=== PATIENT | male | born 1975 | race Two or more races ===

== ENCOUNTER 2024-09-09 00:29 | Inpatient (IN) | payer OTHER ==
[2024-09-09 01:51] LABS: ABSOLUTE IMMATURE GRANULOCYTES 0.06 x10^3/uL (0.0-0.031); BASOPHILS # 0.16 x10^3/uL (0.01-0.08); EOSINOPHIL % 1.3 % (0.8-7.0); EOSINOPHILS # 0.17 x10^3/uL (0.04-0.54); HEMATOCRIT 47.6 % (40.1-51.0); HEMOGLOBIN 16.4 g/dL (13.7-17.5); MCHC 34.5 g/dl (32.3-36.5); MEAN CELL VOLUME 89.6 fl (79.0-92.2); MEAN PLT VOLUME 9.9 fl (9.4-12.4); MONOCYTE % 9.1 % (5.3-12.2); PLATELET COUNT 388 x10^3/uL (163-337); RDW 13.3 % (12.1-15.9)
[2024-09-09] MEDS ORDERED: MAG HYDROX/AL HYDROX/SIMETH 30 ML UNIT-DOSE CUP ONE (01:51)
[2024-09-09] MEDS ORDERED: ONDANSETRON 4 MG/2 ML VIAL ONE ×3 (01:52→09:50)
[2024-09-09] MEDS ORDERED: FAMOTIDINE 10 MG/ML VIAL IVPB ONE (01:52)
[2024-09-09 01:54] LABS: VENOUS BASE EXCESS 3.6 mmol/L (-2-2); VENOUS O2 SATURATION 92.9 % (70-80); VENOUS PCO2 40.8 mmHg (38-52); VENOUS PH 7.452 (7.310-7.410)
[2024-09-09 02:04] LABS: INR 1.16 (0.83-1.09); PROTHROMBIN TIME (PATIENT) 12.8 SEC (9.7-13.0)
[2024-09-09] MEDS: MAG HYDROX/AL HYDROX/SIMETH 30 ML UNIT-DOSE CUP PO ONE (02:06)
[2024-09-09 02:07] LABS: ACTIVATED PTT 37.3 SECONDS (25.2-36.5)
[2024-09-09] MEDS ORDERED: diazePAM CARPU-JECT 10 MG/2 ML DISP.SYRIN ONE (02:08)
[2024-09-09] MEDS ORDERED: THIAMINE HCL 200 MG/2 ML VIAL ONE (02:11)
[2024-09-09 02:15] LABS: CHLORIDE 95 mmol/L (98-107); POTASSIUM 3.3 mmol/L (3.5-5.1); SODIUM 138 mmol/L (136-145)
[2024-09-09] MEDS: FAMOTIDINE 20 MG/50 ML IVPB 20 MG/50 ML MG IVPB ONE (02:16)
[2024-09-09] MEDS: ONDANSETRON 4 MG/2 ML VIAL IVPUSH ONE ×3 (02:16→09:55)
[2024-09-09 02:17] LABS: CALCIUM 9.5 mg/dL (8.5-10.1); GLUCOSE,RANDOM 108 mg/dL (74-106)
[2024-09-09] MEDS: diazePAM CARPU-JECT 10 MG/2 ML DISP.SYRIN IVPUSH ONE (02:17)
[2024-09-09 02:18] LABS: ALBUMIN 3.8 g/dl (3.4-5.0); ANION GAP 14 mmol/L (4-13); BLOOD UREA NITROGEN 7.2 mg/dL (7-18); CO2 28 mmol/L (21-32); MAGNESIUM 2.4 mg/dL (1.8-2.4)
[2024-09-09 02:20] LABS: CREATININE 0.8 mg/dL (0.55-1.3); SGOT/AST 113 U/L (15-37); SGPT/ALT 140 U/L (13-61)
[2024-09-09] MEDS: THIAMINE HCL 200 MG/2 ML VIAL IVPB ONE (02:21)
[2024-09-09 02:22] LABS: BILIRUBIN,TOTAL 0.6 mg/dL (0.2-1); LACTIC ACID 2.4 mmol/L (0.4-2.0)
[2024-09-09 02:23] LABS: ALK PHOS 131 U/L (45-117)
[2024-09-09] MEDS: LACTATED RINGERS SOLUTION 1000 ML INFUS.BAG IV ONE ×2 (02:36→09:08)
[2024-09-09] MEDS: SODIUM CHLORIDE 0.9% 500 ML INFUS.BAG IV ONE ×2 (02:36→03:56)
[2024-09-09] MEDS ORDERED: morphine SULFATE 4 MG/ML VIAL ONE ×2 (02:56→03:58)
[2024-09-09] MEDS: morphine CARPU-JECT 4 MG/1 ML DISP.SYRIN IVPUSH ONE ×2 (03:00→04:04)
[2024-09-09 03:43] LABS: URINE APPEARANCE CLEAR; URINE BILIRUBIN NEGATIVE (NEGATIVE); URINE COLOR YELLOW; URINE GLUCOSE (UA) NEGATIVE (NEGATIVE); URINE KETONE NEGATIVE (NEGATIVE); URINE LEUK ESTERASE NEGATIVE (NEGATIVE); URINE NITRITE NEGATIVE (NEGATIVE); URINE PROTEIN NEGATIVE (NEGATIVE); URINE UROBILINOGEN 0.2 mg/dL (0.2-1.0)
[2024-09-09] MEDS: POTASSIUM CHLORIDE ORAL LIQUID 20 MEQ/15 ML PO ONE (04:27)
[2024-09-09] MEDS ORDERED: POTASSIUM CHLORIDE ORAL LIQUID 20 MEQ/15 ML ONE (04:28)
[2024-09-09] MEDS ORDERED: POTASSIUM CHLORIDE TABS 20 MEQ TABLET.ER (FP) PO ONE (04:31)
[2024-09-09] MEDS ORDERED: ACETAMINOPHEN INJECTION 100 ML ONE (05:51)
[2024-09-09] MEDS: ACETAMINOPHEN 1000 MG/100 ML BAG IVPB ONE (06:10)
[2024-09-09 06:38] LABS: LACTIC ACID 2.1 mmol/L (0.4-2.0)
[2024-09-09] MEDS ORDERED: LORazepam 2 MG/ML SDV VIAL ONE ×2 (06:48→16:05)
[2024-09-09] MEDS: LORazepam 2 MG/ML SDV VIAL IVPUSH ONE (06:54)
[2024-09-09] MEDS ORDERED: KETOROLAC TROMETHAMINE 15 MG/ML VIAL ONE (08:59)
[2024-09-09] MEDS: KETOROLAC TROMETHAMINE 15 MG/ML VIAL IVPUSH ONE (09:07)
[2024-09-09] MEDS ORDERED: ONDANSETRON 4 MG/2 ML VIAL IVPUSH PRN (10:44)
[2024-09-09] MEDS ORDERED: THIAMINE 100 MG TABLET ONE (10:51)
[2024-09-09] MEDS ORDERED: PANTOPRAZOLE SODIUM 40 MG VIAL ONE (10:51)
[2024-09-09] MEDS: THIAMINE 100 MG TABLET PO SCH (11:37)
[2024-09-09] MEDS: PANTOPRAZOLE SODIUM 40 MG VIAL IVPUSH SCH (11:37)
[2024-09-09] MEDS: SODIUM CHLORIDE 1,000 ML IV SCH (11:37)
[2024-09-09] MEDS ORDERED: NICOTINE 14 MG/24 HOURS TOPICAL PATCH TD ONE (12:51)
[2024-09-09] MEDS: NICOTINE 14 MG/24 HOURS TOPICAL PATCH TD SCH (12:55)
[2024-09-09 14:22] LABS: ABSOLUTE IMMATURE GRANULOCYTES 0.04 x10^3/uL (0.0-0.031); BASOPHILS # 0.11 x10^3/uL (0.01-0.08); EOSINOPHIL % 3.3 % (0.8-7.0); EOSINOPHILS # 0.35 x10^3/uL (0.04-0.54); HEMATOCRIT 44.9 % (40.1-51.0); HEMOGLOBIN 15.2 g/dL (13.7-17.5); MCHC 33.9 g/dl (32.3-36.5); MEAN CELL VOLUME 90.7 fl (79.0-92.2); MEAN PLT VOLUME 9.8 fl (9.4-12.4); MONOCYTE # 0.98 x10^3/uL (0.30-0.82); MONOCYTE % 9.2 % (5.3-12.2); PLATELET COUNT 336 x10^3/uL (163-337); RDW 13.3 % (12.1-15.9)
[2024-09-09 14:28] LABS: INR 1.27 (0.83-1.09); PROTHROMBIN TIME (PATIENT) 13.8 SEC (9.7-13.0)
[2024-09-09 14:42] LABS: POTASSIUM 4.1 mmol/L (3.5-5.1)
[2024-09-09 14:45] LABS: ALBUMIN 3.4 g/dl (3.4-5.0)
[2024-09-09 14:47] LABS: GAMMA GLUTAMYL TRANSPEPTIDASE 796 U/L (5-85)
[2024-09-09 14:48] LABS: CREATININE 0.9 mg/dL (0.55-1.3)
[2024-09-09 14:49] LABS: BILIRUBIN,TOTAL 1.1 mg/dL (0.2-1)
[2024-09-09] MEDS: LORazepam 2 MG/ML SDV VIAL IVPUSH PRN ×2 (16:13→21:32)
[2024-09-09 17:31] VITALS: BMI 38.7
[2024-09-09] MEDS: MELATONIN 5 MG TABLETS PO PRN (21:32)
[2024-09-10 08:52] LABS: ABSOLUTE IMMATURE GRANULOCYTES 0.03 x10^3/uL (0.0-0.031); EOSINOPHILS # 0.45 x10^3/uL (0.04-0.54); HEMATOCRIT 42.4 % (40.1-51.0); HEMOGLOBIN 14.5 g/dL (13.7-17.5); MCHC 34.2 g/dl (32.3-36.5); MEAN CELL VOLUME 90.8 fl (79.0-92.2); MEAN PLT VOLUME 10.2 fl (9.4-12.4); MONOCYTE # 0.83 x10^3/uL (0.30-0.82); MONOCYTE % 9.3 % (5.3-12.2); PLATELET COUNT 302 x10^3/uL (163-337); RDW 12.9 % (12.1-15.9)
[2024-09-10 08:59] LABS: INR 1.32 (0.83-1.09); PROTHROMBIN TIME (PATIENT) 14.5 SEC (9.7-13.0)
[2024-09-10 09:10] LABS: POTASSIUM 3.9 mmol/L (3.5-5.1)
[2024-09-10 09:18] LABS: CALCIUM 9.1 mg/dL (8.5-10.1)
[2024-09-10 09:19] LABS: ALBUMIN 3.2 g/dl (3.4-5.0); BLOOD UREA NITROGEN 10.4 mg/dL (7-18); MAGNESIUM 2.4 mg/dL (1.8-2.4)
[2024-09-10 09:21] LABS: CREATININE 0.8 mg/dL (0.55-1.3); PHOSPHOROUS 4.5 mg/dL (2.5-4.9)
[2024-09-10 09:22] LABS: BILIRUBIN,TOTAL 1.5 mg/dL (0.2-1)
[2024-09-10 09:23] LABS: TOT PROT 6.6 g/dl (6.4-8.2)
[2024-09-10] MEDS: FOLIC ACID 1 MG TABLET (FP) PO SCH (09:58)
[2024-09-10] MEDS: LOSARTAN POTASSIUM 25 MG TABLET PO SCH (09:58)
[2024-09-10] MEDS: NIFEdipine E.R 60 MG TABLET PO SCH (09:58)
[2024-09-10] MEDS ORDERED: MIDAZOLAM HCL 2 MG/2 ML SINGLE DOSE VIAL ONE (12:09)
[2024-09-10 13:01] VITALS: TEMP 98.4
[2024-09-10 13:12] VITALS: PULSE 96
[2024-09-10 13:14] VITALS: BP 145/90; RESP 17
[2024-09-10 14:42] LABS: HEPATITIS B SURF AG NON-MATERN NON-REACTIVE (NONREACTIVE)
[2024-09-10 15:11] LABS: HCV DIAGNOSTIC IN-HOUSE W/RFLX NON-REACTIVE (NONREACTIVE)
== END 2024-09-10 15:00 | disposition other institution (70) | DRG 241 ==
LOC: JER 00:29 → JERBED 09:45 → OBSVTOIN 10:36 → J5S 16:27
PROVIDERS: ADMIT Internal Medicine
PROC: 0DB68ZX Excision of Stomach, Via Natural or Artificial Opening Endoscopic, Diagnostic (ICD-10-PCS; principal; 2024-09-10 12:30)
DX: K29.21 Alcoholic gastritis with bleeding (principal); G47.33 Obstructive sleep apnea (adult) (pediatric); K21.9 Gastro-esophageal reflux disease without esophagitis; K76.0 Fatty (change of) liver, not elsewhere classified; F10.230 Alcohol dependence with withdrawal, uncomplicated; K70.10 Alcoholic hepatitis without ascites; E87.6 Hypokalemia; D75.839 Thrombocytosis, unspecified; R16.0 Hepatomegaly, not elsewhere classified; E86.0 Dehydration; I10 Essential (primary) hypertension; R79.89 Other specified abnormal findings of blood chemistry; F17.210 Nicotine dependence, cigarettes, uncomplicated; R19.7 Diarrhea, unspecified
CPT/HCPCS: 0241U-QW; 36415; 71045-TC-FY; 74177-TC; 76700-TC; 80053; 80307; 81003; 82272; 82550; 82553; 82803; 82977; 83605; 83690; 83735; 84100; 85025; 85610; 85730; 86704; 86708; 86803; 86850; 86900; 86901; 87086; 87340; 87517; 88305-TC; 88342-TC; 93005; 93010; 99285-25; G0378